=== PATIENT | female | born 1935 | race Caucasian/White ===

== ENCOUNTER 2020-05-25 13:28 | Day surgery (SDC) | payer MEDICARE, BC ==
[~2020-05-25] VITALS: Ht 157.5 cm; Wt 71.7 kg
[2020-05-25] MEDS ORDERED: NITROGLYCERIN 0.4 MG/TAB BOTTLE SL ONE (13:30)
[2020-05-25] MEDS ORDERED: IV NS 0.9% 500 ML IV PRN (13:30)
[2020-05-25] MEDS ORDERED: METOPROLOL TARTRATE INJ 5 MG/5 ML AMPUL IVP PRN (13:30)
[2020-05-25] MEDS ORDERED: NITROGLYCERIN 0.4 MG/TAB BOTTLE ONE (13:51)
[2020-05-25] MEDS ORDERED: CT SWABBABLE VALVE TRANS SET 1 EA INFUS.SET MC ONE (13:56)
[2020-05-25] MEDS ORDERED: METOPROLOL TARTRATE INJ 5 MG/5 ML AMPUL ONE (13:56)
[2020-05-25] MEDS ORDERED: IV NS 0.9% 250 ML IV ONE (13:56)
[2020-05-25] MEDS ORDERED: IOHEXOL-350 100 ML VIAL IV ONE (13:56)
[2020-05-25 14:07] VITALS: BP 129/87
--- NOTE | 2020-05-25 14:12 | NUR ---
pt from [facility]. consented to CTA heart; Given at total on Metoprolol 5 mg IVP and Ntg 0.4 mg Sl. tolerated procedure, VSS, Endorsed to Paramedics, for transfer to [place]
== END 2020-05-25 14:15 | disposition short-term general hospital (02) ==
LOC: CT 13:28
PROVIDERS: ATTEND Internal Medicine Interventional Cardiology
DX: I25.10 Atherosclerotic heart disease of native coronary artery without angina pectoris (principal); M47.814 Spondylosis without myelopathy or radiculopathy, thoracic region
CPT/HCPCS: 75574; J3490; J7050; Q9967